=== PATIENT | male | born 1955 | race Caucasian/White ===

== ENCOUNTER 2018-11-05 13:48 | Day surgery (SDC) | payer OTHER ==
[~2018-11-05] VITALS: Ht 188 cm; Wt 106.0 kg
[~2018-11-05 13:48] MED LIST: Advil200 M1 PO; SILD50TA PO
--- NOTE | 2018-11-05 15:50 | NUR ---
11/05/18 1550 Milagro Roth S 1541 PT. VOMITED SMALL AMT. YELLOW SECRETIONS. PT. ORALLY SUCTIONED FOR YELLOW TO CLEAR SECRETIONS. 1545 PT. AWAKE & STATES "I'M ALL RIGHT" WHEN ASKED IF HE WAS SICK TO HIS STOMACH.
--- NOTE | 2018-11-05 16:24 | NUR ---
11/05/18 1624 Milagro Roth PT. REFUSED ANYTHING TO DRINK WHEN OFFERRED. PT. VERBALIZED NOT BEING THIRSTY.
== END 2018-11-05 16:18 | disposition home or self-care (01) ==
LOC: ORSCSDS 13:48
PROVIDERS: Surgery
PROC: 0DJD8ZZ Inspection of Lower Intestinal Tract, Via Natural or Artificial Opening Endoscopic (ICD-10-PCS; principal; 2018-11-05 15:00)
DX: Z12.11 Encounter for screening for malignant neoplasm of colon (principal); K57.30 Diverticulosis of large intestine without perforation or abscess without bleeding; Z87.891 Personal history of nicotine dependence
CPT/HCPCS: J7120

== ENCOUNTER 2021-12-11 07:50 | Day surgery (SDC) | payer MEDICARE ==
[~2021-12-11] VITALS: Ht 188 cm; Wt 113.6 kg
[~2021-12-11 07:50] MED LIST changes: +ASPI81CH PO; +ATOR40TA PO; +Bisoprolol Fumar5 MG PO; +Diovan40 MG PO; +XARELTO20 M1 PO
--- NOTE | 2021-12-11 12:18 | NUR ---
RIGHT WRIST TR BAND DEFLATED, ALL AIR REMOVED. ARM BOARD REMAINS ON. SITE APPEAR SOFT NON TENDER WITH NO ACTIVE BLEEDING, OOZING, OR PAIN. CALL LIGHT IN REACH. VSS.
--- NOTE | 2021-12-11 13:30 | NUR ---
TR BAND REMOVED FROM RIGHT WRIST, RED CLOTH DOT DRESSING APPLIED. PT VERBALIZED UNDERSTANDING OF D/C INSTRUCTIONS. PAPERWORK PROVIDED IN FOLDER. ARM BOARD PLACED ON RIGHT WRIST, SITE APPEARS SOFT NON TENDER WITH NO ACTIVE BLEEDING, OOZING, OR PAIN. IV REMOVED FROM LAC WITH CATH INTACT, PRESSURE DRESSING APPLIED. VSS. AT BEDSIDE TO DRIVE PT HOME. NO ACUTE DISTRESS NOTED AT TIME OF DISPO. ENCOURAGED TO FOLLOW UP WITH PROVIDER SCHEDULED.
== END 2021-12-11 12:50 | disposition home or self-care (01) ==
LOC: MHTC 07:50
DX: I20.8 Other forms of angina pectoris (principal); I48.19 Other persistent atrial fibrillation; E66.9 Obesity, unspecified; I42.0 Dilated cardiomyopathy; Z68.33 Body mass index [BMI] 33.0-33.9, adult
CPT/HCPCS: 93458; 99152; 99153; C1769; C1887; C1894; J1644; J2250; J3010; J7030; J7050; Q9967